=== PATIENT | female | born 1985 | race Caucasian/White ===

== ENCOUNTER 2016-09-13 15:49 | Emergency (ER) | payer OTHER ==
[~2016-09-13] VITALS: Ht 165.1 cm; Wt 70.0 kg
[2016-09-13 15:52] VITALS: BP 120/81; PULSE 99; TEMP 37; O2SAT 98; Ht 165.1 cm; Wt 70.0 kg
[2016-09-13] MEDS ORDERED: ERGO500037 PO (16:07)
[2016-09-13] MEDS ORDERED: BUSP-8 PO (16:07)
[2016-09-13] MEDS ORDERED: ZIPR20CA PO (16:07)
[2016-09-13] MEDS ORDERED: AMOXICILLIN/CLAVULANATE TAB 875 MG TAB PO ONE (16:15)
[2016-09-13] MEDS ORDERED: DIPHTHERIA/TETANUS/PERTUSSIS 0.5 ML SYR/VIAL IM. ONE (16:15)
[2016-09-13] MEDS ORDERED: AMOX875T PO (16:30)
--- NOTE | 2016-09-13 16:36 | DIAGNOSTIC IMAGING REPORT ---
LEFT HAND MIN 3 VIEWS ROUTINE CLINICAL HISTORY: L hand dog bite COMPARISON: None FINDINGS: Alignment of the left hand is anatomic anatomic. No acute fracture or radiopaque foreign bodies identified. No fracture is identified. IMPRESSION: No acute fracture or dislocation of the left hand. Electronically signed by: Ramirez Arshad M.D. 09/13/2016 4:35 PM Dictated Date/Time: 09/13/2016 4:34 PM
--- NOTE | 2016-09-13 16:47 | EMERGENCY ROOM VISIT NOTE ---
History First contact with patient: 15:56 Chief Complaint: BITE Stated Complaint: DOG BITE, LEFT HAND-WC History of Present Illness The patient is a 31 year old female who presents to the Emergency Room with complaints of a dog bite to her left hand at 9 AM this morning. The patient works for an [employer] office and was bitten by a middle-age Yovanny Apolinar Terrier. She reports 2 puncture wounds to the hand. She did clean the wounds well after the bite. The patient reports persistent swelling and drainage from the wounds. She has not noticed any redness of the hand. She has taken Aleve for pain, and rates her pain a 3 out of 10. The patient is right-hand- dominant. The patient reports that she is due for a tetanus immunization. Review of Systems 10 system review was performed and was negative except for pertinent positives and negatives as indicated in history of present illness Past Medical/Surgical History Medical Problems: (1) Anxiety Disorder, Unspecified (2) Attention-deficit hyperactivity disorder, unspecified type (3) Major Depressive Disorder, Single Episode, Unspecified Surgical Problems: (1) No history of previous surgery Social History Smoking Status: Never Smoker Drug Use: none Occupation Status: employed Current/Historical Medications Scheduled Amoxicillin & Pot Clavulanate (Augmentin 875-125 mg), 1 TAB PO BID Buspirone Hcl (Buspirone Hcl), 10 MG PO BID Dexmethylphenidate Hcl (Focalin Xr), 1 CAP PO QAM Dexmethylphenidate Hcl (Focalin), 1 TAB PO DAILY Ergocalciferol (Vitamin D 19179 Unit), 50,000 UNIT PO WK Escitalopram Oxalate (Lexapro), 20 MG PO DAILY Ziprasidone Hcl (Geodon), 20 MG PO DAILYBB Physical Exam Vital Signs Date Time Temp Pulse Resp B/P (MAP) Pulse Ox O2 Delivery O2 Flow Rate FiO2 09/13/16 15:52 37.0 99 20 120/81 98 Room Air Physical Exam CONSTITUTIONAL: Healthy and well nourished. Alert and oriented X 3 with positive affect. Patient does not appear in any acute distress. HEENT: Normocephalic, atraumatic. Pupils equal, round and reactive. NECK: Full active range of motion without discomfort. MUSCULOSKELETAL: Examination shows a puncture wound over the dorsum of the hand and radial aspect of the palm. There is serosanguineous drainage. The patient is able to flex and extend the fingers against resistance. Capillary refill is less than 2 seconds. The patient has no tenderness to palpation through the wrist or distal forearm. INTEGUMENTARY: No rash or other significant dermatologic conditions noted. NEUROLOGIC: Left hand and fingers are sensory intact. Medical Decision & Procedures ER Provider Diagnostic Interpretation: My interpretation of left hand x-rays does not show any fractures, dislocations or radiopaque foreign bodies. Radiologist report is as follows: LEFT HAND MIN 3 VIEWS ROUTINE CLINICAL HISTORY: L hand dog bite COMPARISON: None FINDINGS: Alignment of the left hand is anatomic anatomic. No acute fracture or radiopaque foreign bodies identified. No fracture is identified. IMPRESSION: No acute fracture or dislocation of the left hand. Medications Administered Medications (Trade) Dose Ordered Sig/Marco A Route Start Time Stop Time Status Last Admin Dose Admin Amoxicillin/ Clavulanate Potassium (Augmentin Tab) 875 mg ONE ONCE PO 09/13/16 16:15 09/13/16 16:16 DC 09/13/16 16:15 875 MG Diphtheria/ Pertussis/Tetanus Vacc (Adacel Inj) 0.5 ml ONCE ONCE IM. 09/13/16 16:15 09/13/16 16:16 DC 09/13/16 16:15 0.5 ML ED Course Patient history and physical exam were performed. Nurse's notes were reviewed. Vital signs were reviewed and normal. The patient refused any analgesics. She was administered Augmentin 875 mg, and Adacel IM. X-rays of the left hand were normal. The patient was provided a prescription for Augmentin 875 mg twice a day 5 days. She refused any perception analgesics. She was encouraged to alternate ibuprofen and Tylenol as needed for pain. She was instructed to return to the emergency department for any signs of infection, otherwise may follow up with her Worker's Compensation physician as needed for further management. The patient was happy with plan of care, voice understanding of all discharge instructions, and rated her discomfort a 3 out of 10 at the time of discharge. Medical Decision Medication Reconcilliation Current Medication List: was personally reviewed by me Blood Pressure Screening Patient's blood pressure: Normal blood pressure Impression Primary Impression: Dog bite of left hand Additional Impression: Work related injury Departure Information Prescriptions Amoxicillin & Pot Clavulanate (Augmentin 875-125 mg) 1 Tab Tab 1 TAB PO BID for 5 Days, #10 TAB Prov: Tez Trinh PA 09/13/16 Referrals Vonda Kemp M.D. (MEDICAL) (PCP) Patient Instructions My [facility] Problem Qualifiers Primary Impression: Dog bite of left hand Encounter type: initial encounter Qualified Codes: S61.452A - Open bite of left hand, initial encounter; W54.0XXA - Bitten by dog, initial encounter
[2016-09-13] MEDS ORDERED: ESCI1TAB10 PO (22:12)
[2016-09-13] MEDS ORDERED: DEXM10TA PO (22:12)
[2016-09-13] MEDS ORDERED: DEXM20CA PO (22:12)
== END 2016-09-13 16:52 | disposition home or self-care (01) ==
LOC: C.EDB 15:51 → C.EDD 16:52
DX: S61.452A Open bite of left hand, initial encounter (principal); W54.0XXA Bitten by dog, initial encounter; F90.9 Attention-deficit hyperactivity disorder, unspecified type; F32.9 Major depressive disorder, single episode, unspecified; Z23 Encounter for immunization